=== PATIENT | female | born 1970 | race Hispanic/Latino ===

== ENCOUNTER 2017-07-28 12:54 | Emergency (ER) | payer MEDICARE ==
[2017-07-28 13:27] VITALS: BP 151/91
[2017-07-28 14:21] LABS: Basophils % (Auto) 0.9 % (0.0-1.8); Eosinophils % (Auto) 2.2 % (0.0-4.3); Hemoglobin 13.3 gm/dl (10.1-14.3); Mean Corpuscular HGB Conc 34 % (30-34); Mean Corpuscular Hemoglobin 30 pg (28-32); Mean Corpuscular Volume 87 fl (79-97); Platelet Count 260 K/mm3 (140-440); Red Blood Count 4.47 M/mm3 (3.65-5.03); Red Cell Distribution Width 13.9 % (13.2-15.2); White Blood Count 11.1 K/mm3 (4.5-11.0)
[2017-07-28 14:31] LABS: Alanine Aminotransferase 11 units/L (7-56); Albumin 4.1 g/dL (3.9-5); Albumin/Globulin Ratio 1.7 %; Alkaline Phosphatase 82 units/L (35-129); Anion Gap 14 mmol/L; BUN/Creatinine Ratio 20; Blood Urea Nitrogen 12 mg/dL (7-17); Calcium 8.8 mg/dL (8.4-10.2); Carbon Dioxide 28 mmol/L (22-30); Chloride 101.6 mmol/L (98-107); Glucose 94 mg/dL (65-100); Lipase 15 units/L (13-60); Sodium 140 mmol/L (137-145); Total Protein 6.5 g/dL (6.3-8.2)
[2017-07-28 17:29] LABS: Bilirubin,Urine NEG (Negative); Blood,Urine NEG (Negative); Ketones,Urine NEG (Negative); Leukocyte Esterase,Urine NEG (Negative); Nitrite,Urine NEG (Negative); Protein,Urine <15 mg/dL mg/dL (Negative); Urobilinogen,Urine < 2.0 mg/dL (<2.0)
== END 2017-07-28 20:38 | disposition left against medical advice (07) ==
LOC: ED 12:54
DX: R10.9 Unspecified abdominal pain (principal); Z53.21 Procedure and treatment not carried out due to patient leaving prior to being seen by health care provider
CPT/HCPCS: 36415; 80053; 81001; 83690; 85025

== ENCOUNTER 2017-12-06 07:49 | Outpatient (CLI) | payer MEDICARE ==
[2017-12-06 08:23] LABS: Alanine Aminotransferase 11 units/L (7-56); Albumin 4.1 g/dL (3.9-5); BUN/Creatinine Ratio 27; Blood Urea Nitrogen 16 mg/dL (7-17); Calcium 8.8 mg/dL (8.4-10.2); Hemolysis Index 6
--- NOTE | 2017-12-06 11:22 | Cat Scan Report ---
CT ABDOMEN PELVIS WITH AND WITHOUT CONTRAST: HISTORY: Acute abdominal pain. COMPARISON: none. TECHNIQUE: Helical CT in 1.25mm intervals before and after IV contrast. Sagittal and coronal reconstructions. FINDINGS: Lung bases: Normal. Liver: Normal. Biliary system: Normal. Pancreas: Normal. Spleen: Normal. Kidneys/ureters/bladder: 2 calyceal stones measuring 2 mm are identified at the inferior pole of the right kidney. No left nephrolithiasis. Normal enhancement pattern in both kidneys. The ureters are normal course and caliber. Normal bladder. Adrenal glands: Normal. Aorta: Normal. Intestines: Normal. Appendix: Normal. Pelvic viscera: Hysterectomy changes are suspected. No adnexal cyst or mass. Ascites: None. Adenopathy: None. Musculoskeletal: Minimal thoracolumbar spondylosis. No fracture or suspicious bony lesion. IMPRESSION: Right nephrolithiasis. There are 2 small calyceal stones at the inferior pole of the right kidney. No ureteral stones or hydronephrosis. Hysterectomy. No acute inflammatory process is identified.
== END 2017-12-06 07:50 | disposition home or self-care (01) ==
LOC: CT 07:49
PROVIDERS: ATTEND Obstetrics & Gynecology Gynecology
DX: N20.0 Calculus of kidney (principal); M47.894 Other spondylosis, thoracic region; Z90.710 Acquired absence of both cervix and uterus
CPT/HCPCS: 36415; 74178; 80053; Q9967